=== PATIENT | male | born 1985 | race Caucasian/White ===

== ENCOUNTER 2016-07-27 20:15 | Emergency (ER) | payer BC ==
[~2016-07-27] VITALS: Ht 172.7 cm; Wt 86.2 kg
[2016-07-27 20:20] VITALS: BP 144/94
[2016-07-27] MEDS ORDERED: HYDROCODONE/APAP 5/325MG TABLET. PO ONE (22:00)
--- NOTE | 2016-07-27 22:04 | RAD ---
PROCEDURE CT scan of the head without contrast 07/27/2016 HISTORY Box fell on top of head. Head ache. TECHNIQUE Unenhanced contiguous, 5 millimeter axial sections were obtained through the head. One or more of the following individualized dose reduction techniques were utilized for this study: 1. Automated exposure control. 2. Adjustment of the mA and/or kV according to patient size. 3. Use of iterative reconstruction technique. FINDINGS The ventricles and sulci are within normal limits in size and configuration. No area of abnormal attenuation is seen involving the brain parenchyma. No extra-axial fluid collection is seen. No skull fracture is noted. Mild mucosal thickening is seen involving the left aspect of the sphenoid sinus. IMPRESSION No acute intracranial abnormality is seen. CT scan of the cervical spine without contrast 07/27/2016 History: Box fell on top of head. Neck pain. Technique: Unenhanced contiguous, 0.625 millimeter axial sections were obtained through the cervical spine. 3 millimeter reconstructed sagittal, axial and coronal images were obtained. One or more of the following individualized dose reduction techniques were utilized for this study: 1. Automated exposure control. 2. Adjustment of the mA and/or kV according to patient size. 3. Use of iterative reconstruction technique. Findings: Sagittal and coronal reconstructed images demonstrate minimal lateral curvature of the cervical spine convex to the right. There is straightening of the normal cervical lordosis. Patient is status post anterior fusion of the cervical spine using an anterior plate and bone screws extending from C5 to C7. No fracture or subluxation cervical vertebrae is seen. Degenerative changes are seen involving the uncovertebral and facet joints throughout the mid and lower cervical disc spaces. IMPRESSION: No fracture or subluxation the cervical vertebrae is seen. Electronically signed by: Sean Kwok MD (Jul 27, 2016 22:04:07)
[2016-07-27] MEDS ORDERED: HYDR-971 PO (22:17)
[2016-07-27] MEDS ORDERED: METH-37 PO (22:17)
--- NOTE | 2016-07-27 22:17 | PHYS DOC ---
Past Medical History Past Medical History: No Pertinent History Past Surgical History: Tonsillectomy, Other Additional Past Surgical Histo: c5-c6 fusion Additional Information: chew tobacco Alcohol Use: None Drug Use: None Adult General Chief Complaint Chief Complaint: NECK INJURY HPI HPI Patient is a 31 year old male who presents with headache and neck pain after being hit by a heavy box that was falling. The patient was reaching up to get something off of the shelf and a heavy box came off the shelf and hit him in the forehead. He denies loss of consciousness. He does not have any dizziness, vision changes, nausea, vomiting, weakness, or numbness. He has a history of C5- C6 fusion. He is placed in a cervical collar at triage. He does not have a PCP. He sees his psychiatrist for his medications. Review of Systems Review of Systems Constitutional: Denies fever or chills. [] Eyes: Denies change in visual acuity, redness, or eye pain. [] GI: Denies abdominal pain, nausea, vomiting. [] Musculoskeletal: Denies back pain or joint pain. Reports neck pain. Integument: Denies rash or skin lesions. [] Neurologic: Denies loss of consciousness or dizziness, focal weakness or sensory changes. Reports headache. All systems reviewed and negative unless otherwise stated in the HPI. Current Medications Current Medications Current Medications Medications (Trade) Dose Ordered Sig/Nader Start Time Stop Time Status Last Admin Dose Admin Acetaminophen/ Hydrocodone Bitart (Lortab 5/325) 1 tab 1X ONCE 07/27/16 22:00 07/27/16 22:03 DC 07/27/16 21:57 1 TAB Allergies Allergies Allergies Coded Allergies Type Severity Reaction Last Updated Verified morphine Adverse Reaction Unknown 07/27/16 Yes Physical Exam Physical Exam Constitutional: Well developed, well nourished, no acute distress, non-toxic appearance. [] HENT: Normocephalic, atraumatic, oropharynx moist. [] Eyes: PERRLA, EOMI, conjunctiva normal, no discharge. [] Neck: Normal range of motion, midline tenderness, supple, no stridor. C-collar in place. Cardiovascular: Heart rate regular rhythm, no murmur. [] Lungs & Thorax: Bilateral breath sounds clear to auscultation without wheezes, rales, or rhonchi. [] Skin: Warm, dry, no erythema, no rash. [] Back: No midline tenderness, no CVA tenderness. [] Extremities: No tenderness, ROM intact, no edema. Distal pulses equal bilaterally. Less than 2 second capillary refill in the fingers. Light touch sensation intact in the fingers. Neurologic: Alert and oriented X 3, normal motor function, normal sensory function, no focal deficits noted. CN II-XII grossly intact. The patient walks with normal steady gait without assistance. Psychologic: Affect normal, judgement normal, mood normal. [] Current Patient Data Vital Signs Vital Signs Date Time Temp Pulse Resp B/P Pulse Ox O2 Delivery O2 Flow Rate FiO2 07/27/16 21:57 18 99 Room Air 07/27/16 20:20 97.7 78 97.7 EKG EKG [] Radiology/Procedures Radiology/Procedures REASON: heavy box fell on head, ARCE and neck pain PROCEDURE: CT HEAD AND CERVICAL SPINE WO PROCEDURE CT scan of the head without contrast 07/27/2016 HISTORY Box fell on top of head. Head ache. FINDINGS The ventricles and sulci are within normal limits in size and configuration. No area of abnormal attenuation is seen involving the brain parenchyma. No extra-axial fluid collection is seen. No skull fracture is noted. Mild mucosal thickening is seen involving the left aspect of the sphenoid sinus. IMPRESSION No acute intracranial abnormality is seen. CT scan of the cervical spine without contrast 07/27/2016 History: Box fell on top of head. Neck pain. Findings: Sagittal and coronal reconstructed images demonstrate minimal lateral curvature of the cervical spine convex to the right. There is straightening of the normal cervical lordosis. Patient is status post anterior fusion of the cervical spine using an anterior plate and bone screws extending from C5 to C7. No fracture or subluxation cervical vertebrae is seen. Degenerative changes are seen involving the uncovertebral and facet joints throughout the mid and lower cervical disc spaces. IMPRESSION: No fracture or subluxation the cervical vertebrae is seen. Course & Med Decision Making Course & Med Decision Making Pertinent Labs and Imaging studies reviewed. (See chart for details) [] Dragon Disclaimer Dragon Disclaimer This electronic medical record was generated, in whole or in part, using a voice recognition dictation system. Departure Departure Impression: Primary Impression: Head contusion Additional Impression: Neck pain Disposition: HOME, SELF-CARE Condition: STABLE Referrals: NO PCP (PCP) Patient Instructions: Head Injury, Adult, [id number] Additional Instructions: The CT of your head and neck did not show any acute abnormalities. Please take the prescribed medications as directed. Please follow-up with your primary care doctor if your symptoms continue. Return to the emergency department if you have any new or concerning symptoms. Scripts Methocarbamol (Robaxin)500 Mg [id number] Mg PO QID #12 TAB Prov:GEORGINA MARSH 07/27/16 Hydrocodone/Apap 5-325 (Nitro 5-325 Tablet)1 Each Tablet1 Tab PO PRN Q6HRS PRN PAIN #12 TAB Prov:GEORGINA MARSH 07/27/16 Problem Qualifiers Primary Impression: Head contusion Encounter type: initial encounter Contusion of head detail: other part of head Qualified Code: S00.83XA - Contusion of other part of head, initial encounter GEORGINA MARSH Jul 27, 2016 22:17
== END 2016-07-27 22:40 | disposition home or self-care (01) ==
LOC: ER 20:15
DX: S00.83XA Contusion of other part of head, initial encounter (principal); F17.223 Nicotine dependence, chewing tobacco, with withdrawal; Z88.5 Allergy status to narcotic agent; Z90.89 Acquired absence of other organs; W20.8XXA Other cause of strike by thrown, projected or falling object, initial encounter; Y93.89 Activity, other specified; Y92.89 Other specified places as the place of occurrence of the external cause; Y99.8 Other external cause status
CPT/HCPCS: 70450; 72125; 99284-25

== ENCOUNTER → 2016-07-27 | Outpatient (CLI) | payer BC ==
[~2016-07-27] MED LIST: HYDR-971 PO; METH-37 PO
--- NOTE | 2016-07-27 14:20 | KCIC ---
PROCEDURE Abdomen ultrasound HISTORY Right upper quadrant pain, history of pancreatitis COMPARISON None FINDINGS Multiple sonographic images of the abdomen are submitted. There is no abnormality of the visualized pancreas although suboptimally visualized due to bowel gas. No free fluid is demonstrated. There is diffuse coarsening of the echotexture of the liver, no focal hepatic mass demonstrated. Abdominal aortic caliber is within normal limits. There is segmental visualization of the inferior vena cava. Right lobe of the liver measured 14.4 centimeters longitudinal. Right kidney measured 11.5 x 4.6 x 5.1 centimeters without hydronephrosis. Left kidney measured 11.4 x 5.3 x 5.3 centimeters, no hydronephrosis. Gallbladder is present without intraluminal abnormality, wall thickening, pericholecystic fluid. Common bile duct is within normal limits at 0.4 cm. IMPRESSION 1. There is hepatic steatosis. No other abnormality is demonstrated. Electronically signed by: Martinez Toney MD (Jul 27, 2016 14:18:38)
== END | disposition home or self-care (01) ==
LOC: KCIC US 10:58
DX: R10.11 Right upper quadrant pain (principal); K76.0 Fatty (change of) liver, not elsewhere classified; Z87.19 Personal history of other diseases of the digestive system
CPT/HCPCS: 76700